=== PATIENT | female | born 1940 | race Caucasian/White ===

== ENCOUNTER 2017-05-27 05:18 | Observation (INO) | payer MEDICARE, OTHER ==
[2017-05-27] MEDS ORDERED: Nitroglycerin 2% Ointment 1 INCH/1 GM Packet ONE (05:58)
[2017-05-27] MEDS ORDERED: Nitroglycerin 0.4 MG TAB (25 Tab Bottle) ONE (06:09)
[2017-05-27 06:14] LABS: #Basophils 0.1 thou/uL (0.0-0.2); #Eosinphils 0.7 thou/uL (0.0-0.7); #Lymphocytes 1.5 thou/uL (1.20-3.40); #Monocytes 0.9 thou/uL (0.11-0.59); #Neutrophils 7.4 thou/uL (1.40-6.50); %Basophils 0.5 % (0.0-1.0); %Eosinophils 6.8 % (0.0-10.0); %Lymphocytes 14.1 % (21.0-51.0); %Monocytes 8.7 % (0.0-10.0); Hematocrit 42.9 % (36.0-47.0); Mean Platelet Volume 6.7 fL (7.4-10.4); Red Blood Cell (RBC) Count 4.32 mill/uL (4.20-5.40); White Blood Cell (WBC) Count 10.6 thou/uL (4.8-10.8)
[2017-05-27 06:37] LABS: ALT (SGPT) 15 U/L (8-55); AST (SGOT) 16 U/L (5-34); Alkaline Phosphatase 162 U/L (40-150); Anion Gap 14 mmol/L (10-20); BUN (Urea Nitrogen) 13 mg/dL (9.8-20.1); Bilirubin, Total 0.4 mg/dL (0.2-1.2); CK (CPK) 27 U/L (29-168); Calc. Creatinine Clearance 0 mL/min (70-130); Calcium 9.1 mg/dL (7.8-10.44); Carbon Dioxide 25 mmol/L (23-31); Chloride 105 mmol/L (98-107); Estimated GFR-MDRD 90; Globulin 3.2 g/dL (2.4-3.5); Lipase 11 U/L (8-78); Protein, Total 6.7 g/dL (6.0-8.3)
[2017-05-27 06:45] LABS: Troponin I Less than 0.010 ng/mL (< 0.028)
--- NOTE | 2017-05-27 07:53 | RAD ---
SINGLE VIEW OF THE CHEST: COMPARISON: 08/05/13. HISTORY: Chest pain. FINDINGS: Single view of the chest shows a normal sized cardiomediastinal silhouette. There is no evidence of consolidation, mass, or pleural effusion. The bones are unremarkable. IMPRESSION: No evidence of acute cardiopulmonary disease. POS: [facility]
[2017-05-27 09:24] VITALS: BMI 24.2
[2017-05-27 09:37] LABS: Troponin I Less than 0.010 ng/mL (< 0.028)
[2017-05-27] MEDS ORDERED: Acetaminophen 500 MG TAB PO SCH (12:15)
[2017-05-27 12:54] LABS: Troponin I 0.014 ng/mL (< 0.028)
[2017-05-27 16:07] VITALS: BP 159/72; TEMP 98.1
[2017-05-27] MEDS ORDERED: ADENOSINE 60 MG/20 ML VIAL ONE (16:50)
--- NOTE | 2017-05-27 17:41 | NM ---
MYOCARDIAL PERFUSION STUDY 05/27/17 HISTORY: Chest pain, asthma, COPD. RADIOPHARMACEUTICAL: 33 millicuries technetium 99m Sestamibi, IV at stress. MEDICATIONS: 12.7 mL (38.1 mg) Adenosine, IV. This study was performed as a stress only myocardial perfusion study. FINDINGS: There is generalized normal uptake of radiotracer seen throughout the left ventricular myocardium. N o focal defect is seen on the nonattenuated and attenuation corrected images. Gated images show norm al ventricular wall thickening with very mild hypokinesis involving the inferior left ventricular wa ll. The calculated left ventricular ejection fraction is 72%. IMPRESSION: 1. No significant defect is seen on stress acquisitions to suggest an area of ischemia. 2. Very mild hypokinesis involving the inferior left ventricular wall. 3. Normal LVEF at 72%. POS: [facility]
--- NOTE | 2017-05-27 18:05 | HP ---
DATE OF ADMISSION: 05/27/2017 PRIMARY CARE PHYSICIAN: Adrien Beyer M.D. CHIEF COMPLAINT: Chest pain. HISTORY OF PRESENT ILLNESS: This is a 76-year-old female who presents to [facility] complaining of chest and neck pain. The patient states she has noticed pain at th e top of her shoulders and base of her neck, especially after sleeping on her couch propped with pil lows due to difficulty with maneuvering into her bed after breaking her left arm several weeks ago. The patient has noticed some difficulty when moving her neck side to side or forward and sleeps wit h it bent forward most of the night. The patient denied any specific left jaw or left arm discomfor t. The patient denies any increased pain with mobilization or activity level. The patient apparent ly rides a stationary bike up to 2 hours at home according to her daughter at the bedside. The ezekiel ent did sustain a left wrist fracture several weeks prior with a cast in place. The patient has had some difficulty with mobilization. The patient does state she had a history of previous myocardial infarction 4-5 years prior to this evaluation undergoing cardiac stent placement. The patient also treated for hypertension with somewhat labile values according to family members. The patient does admit to taking aspirin 81 mg daily in addition to lovastatin. The patient denies any medication f or relief of her symptoms. The patient denies any recent travel history, trauma, injury, fever, chi lls, increased cough, congestion. In the emergency room, the patient underwent general evaluation i ncluding chest imaging showing no acute infiltrate. The patient was given nitroglycerin 0.4 mg subl ingually in addition to topical nitro paste and transferred to the observation unit. PAST MEDICAL HISTORY: 1. Coronary artery disease status post cardiac stent placement. 2. History of lumbar radiculopathy. 3. History of falls with sustainment of femoral neck fracture and dislocation. 4. Status post left wrist fracture status post fall. 5. Hypertension. 6. Hyperlipidemia. 7. Parkinson's disease. PAST SURGICAL HISTORY: 1. Status post hysterectomy. 2. Status post intramedullary nailing of a right hip fracture. 3. Status post cardiac stent placement. CURRENT MEDICATIONS: 1. Aspirin 81 mg 1 tab p.o. daily. 2. Carbidopa/levodopa 25/100 mg 1 tab p.o. t.i.d. 3. Lexapro 20 mg 1 tab p.o. daily. 4. Lisinopril 40 mg 1 tab p.o. daily. 5. Loratadine 10 mg 1 tab p.o. daily. 6. Lovastatin 10 mg p.o. at bedtime. 7. Metoprolol tartrate 100 mg p.o. b.i.d. 8. Amlodipine 2.5 mg p.o. daily. ALLERGIES: No known drug allergies. FAMILY HISTORY: Positive for hypertension. SOCIAL HISTORY: The patient resides in the [facility]. Ambulatory with the use of a rolling walker. History of recurrent falls. No current alcohol, tobacco or illicit drug use. REVIEW OF SYSTEMS: The following complete review of systems was negative, unless otherwise mentione d in the HPI or below: Constitutional: Weight loss or gain, ability to conduct usual activities. Skin: Rash, itching. Eyes: Double vision, pain. ENT/Mouth: Nose bleeding, neck stiffness, pain, tenderness. Cardiovascular: Palpitations, dyspnea on exertion, orthopnea. Respiratory: Shortness of breath, wheezing, cough, hemoptysis, fever or night sweats. Gastrointestinal: Poor appetite, abdominal pain, heartburn, nausea, vomiting, constipation, or diar odalis. Genitourinary: Urgency, frequency, dysuria, nocturia. Musculoskeletal: Pain, swelling. Neurologic/Psychiatric: Anxiety, depression. Allergy/Immunologic: Skin rash, bleeding tendency. Otherwise negative except as stated per HPI. PHYSICAL EXAMINATION: VITAL SIGNS: On admission, blood pressure 143/86, pulse 79, respiratory rate is 14, temperature 98 degrees Fahrenheit, O2 saturation 97% on room air. GENERAL APPEARANCE: This is a 76-year-old female, alert and oriented x3, pleasant, in no acute distress. HEENT: Pupils are equal, round and reactive to light and accommodation. Extraocular muscles are in tact. No scleral icterus. No conjunctival injection. Nares patent. OP is clear. Teeth in fair r epair. NECK: Supple, no cervical adenopathy, no thyromegaly, no carotid bruits, no JVD appreciated. Cervi shea spine with limited active range of motion and hyperextension. CHEST: Lungs are clear to auscultation bilaterally. CARDIOVASCULAR: S1, S2 without noted murmur. ABDOMEN: Rounded, soft, nontender, nondistended. Bowel sounds are positive in all 4 quadrants. Th ere is no hepatosplenomegaly, no abdominal bruits, no rebound or guarding appreciated. No palpable mass. EXTREMITIES: Warm and dry with fair turgor. No clubbing, cyanosis or asymmetric edema appreciated. Pulses palpable distally at the dorsalis pedis, posterior tibial, and popliteal arteries bilateral ly. Capillary refill less than 2 seconds. Left upper extremity with fiberglass cast in place. Eunice rovascularly intact of the left hand. NEUROLOGIC: Resting tremor noted. Cranial nerves II-XII are grossly intact. The patient not obser sidra ambulatory during this exam. PERTINENT LABORATORY AND X-RAY FINDINGS: Complete metabolic profile within normal limits. Troponin I negative x3. Lipase 11. CBC showed a white blood cell count of 10.6, hemoglobin 13.6, hematocri t 43, MCV 99, platelet count 391,000 with normal differential. Portable chest x-ray dated 7 showed no acute cardiopulmonary process. Cardiolite stress test dated 05/27/2017 showed no eviden ce of reversible or fixed ischemia with calculated ejection fraction of 72%. HOSPITAL COURSE: The patient was observed on the telemetry unit after initially presenting with nec k and questionable chest pain. The patient proceeded to Cardiolite stress testing after initial car diac enzymes were negative x3. Cardiolite stress testing showed no evidence of reversible or fixed ischemia with calculated ejection fraction of 72%. Telemetry monitoring showed sinus mechanism with out evidence of acute arrhythmia or dysrhythmia. The patient's presentation is consistent with musc uloskeletal origin symptoms likely due to patient's body habitus and repetitive posture contributing to neck pain. The patient was given education and reassurance regarding her condition. Overall, t he patient is clinically stable and ready for discharge on 05/27/2017. ASSESSMENT AND PLAN: 1. Chest pain, non-cardiac, suspected musculoskeletal in origin. Negative Cardiolite stress testin g as stated previously. No evidence of acute coronary syndrome. 2. Neck pain/myalgia. Symptomatic and supportive management. 3. Hypertension, labile. Resume home antihypertensive regimen and monitor clinically. The patient may need additional titration of her antihypertensive regimen on an ongoing basis after discharge. 4. Parkinson's disease. Continue carbidopa/levodopa. 5. Hyperlipidemia. Resume lovastatin 10 mg p.o. at bedtime. 6. Code status is full. Surrogate medical decision maker is the patient's daughter.
--- NOTE | 2017-05-28 02:08 | DIS ---
DATE OF ADMISSION: 05/27/2017 DATE OF DISCHARGE: 05/27/2017 DISCHARGE DIAGNOSES: 1. Chest pain, non-cardiac. 2. Neck pain/myalgia secondary to muscle strain. 3. Hypertension, labile. 4. Parkinson disease. 5. Hyperlipidemia. CONSULTATIONS: None. PERTINENT LABORATORY AND X-RAY FINDINGS: Complete metabolic profile within normal limits. CBC with in normal limits. Troponin I negative x3. Portable chest x-ray dated 05/27/2017 showed no acute ca rdiopulmonary process. Cardiolite stress testing dated 05/27/2017 showed no evidence of reversible or fixed ischemia with a calculated ejection fraction of 72%. HOSPITAL COURSE: The patient was observed on the telemetry unit after initially presenting with que stionable chest and neck pain. The patient proceeded to Cardiolite stress testing after initial car diac enzymes were negative x3. Cardiolite stress testing showed no evidence for reversible or fixed ischemia with a calculated ejection fraction of 72%. The patient's presentation was consistent wit h myalgias and muscle strain with education and reassurance given. Overall, the patient remained cl inically stable throughout the hospital course and ready for discharge on 05/27/2017. DISCHARGE MEDICATIONS: 1. Enteric-coated aspirin 81 mg 1 tab p.o. daily. 2. Carbidopa/levodopa 25/100 mg 1 tab p.o. t.i.d. 3. Lexapro 20 mg one tab p.o. daily. 4. Lisinopril 40 mg 1 tab p.o. daily. 5. Loratadine 10 mg 1 tab p.o. daily. 6. Lovastatin 10 mg p.o. at bedtime. 7. Metoprolol 100 mg p.o. b.i.d. 8. Amlodipine 2.5 mg 1 tab p.o. daily. FOLLOWUP: The patient will follow up with her primary care provider, Dr. Adrien Beyer, within 7 days of discharge. CONDITION ON DISCHARGE: Stable. ACTIVITY: Ad jesús. DIET: Heart healthy. CODE STATUS: Full. DISPOSITION: Home on 05/27/2017.
== END 2017-05-27 17:25 | disposition home or self-care (01) ==
LOC: ERS 05:18 → 2SW 07:27
PROVIDERS: ADMIT Family Medicine; ATTEND Family Medicine
DX: R07.89 Other chest pain (principal); M54.2 Cervicalgia; M79.1 Myalgia; S16.1XXA Strain of muscle, fascia and tendon at neck level, initial encounter; I10 Essential (primary) hypertension; G20 Parkinson's disease; E78.5 Hyperlipidemia, unspecified; I25.10 Atherosclerotic heart disease of native coronary artery without angina pectoris; M54.16 Radiculopathy, lumbar region; Z79.82 Long term (current) use of aspirin; Z79.899 Other long term (current) drug therapy; Z95.818 Presence of other cardiac implants and grafts; Z96.7 Presence of other bone and tendon implants; Z90.710 Acquired absence of both cervix and uterus; Z91.81 History of falling; Z87.81 Personal history of (healed) traumatic fracture; Z87.891 Personal history of nicotine dependence
CPT/HCPCS: 71010; 78452; 80053; 82550; 82553; 83690; 84484 ×2; 85025; 93005; 93017; 99285; A9500; 36415; J0153

== ENCOUNTER 2023-05-11 13:38 | Inpatient (IN) | payer MEDICARE, OTHER ==
[~2023-05-11 13:38] MED LIST: Iopamidol-370 76% 500 ML MDV (1 ML CHARGE) ONE
[2023-05-11 15:23] LABS: #Basophils 0.1 thou/uL (0.0-0.2); #Eosinphils 0.3 thou/uL (0.0-0.7); #Monocytes 0.8 thou/uL (0.11-0.59); %Basophils 0.6 % (0.0-1.0); %Eosinophils 3.9 % (0.0-10.0); %Lymphocytes 7.4 % (21.0-51.0); %Neutrophils 78.6 % (42.0-75.0); Hematocrit 41.4 % (36.0-47.0); Hemoglobin 13.7 g/dL (12.0-16.0); Mean Corpuscular HGB CONC 33.1 g/dL (32.0-36.0); Mean Corpuscular Hemoglobin 32.2 pg (27.0-31.0); Mean Corpuscular Volume 97.4 fl (78.0-98.0); Mean Platelet Volume 9.6 fL (7.4-10.4); Platelet Count 278 10x3/uL (130-400); RBC Distribution Width 13.7 % (11.5-14.5); Red Blood Cell (RBC) Count 4.25 mill/uL (4.20-5.40); White Blood Cell (WBC) Count 8.8 10x3/uL (4.8-10.8)
[2023-05-11 15:45] LABS: ALT (SGPT) Less than 7 U/L (8-55); AST (SGOT) 11 U/L (5-34); Albumin 3.9 g/dL (3.4-4.8); Alkaline Phosphatase 95 U/L (40-110); Anion Gap 16 mmol/L (10-20); BUN (Urea Nitrogen) 17 mg/dL (9.8-20.1); Bilirubin, Total 0.7 mg/dL (0.2-1.2); CK (CPK) 26 U/L (29-168); Calc. Creatinine Clearance 0 mL/min (70-130); Calcium 8.9 mg/dL (7.8-10.44); Carbon Dioxide 25 mmol/L (23-31); Chloride 105 mmol/L (98-107); Estimated GFR 86; Globulin 2.5 g/dL (2.4-3.5); Glucose 100 mg/dL (83-110); Potassium 3.8 mmol/L (3.5-5.1); Protein, Total 6.4 g/dL (5.8-8.1); Sodium 142 mmol/L (136-145)
[2023-05-11 15:49] LABS: Troponin I 0.012 ng/mL (< 0.028)
[2023-05-11 17:58] LABS: Bacteria/HPF None Seen HPF (None Seen); Bilirubin Negative (Negative); Blood, Urine Negative (Negative); CAUTI Indications for Culture Dysuria,urgency,freq; Clarity Clear (Clear); Glucose, Urine (Dipstick) Normal (Negative); Ketone, Urine 10 mg/dL (Negative); Leukocyte Negative Leu/uL (Negative); Nitrite Negative (Negative); Protein, Urine (Dipstick) Negative (Neg-Trace); RBC/HPF 0-3 HPF (0-3); Specific Gravity, Urine 1.027 (1.002-1.036); Squamous Epithelial 0-3 HPF (0-3); Urobilinogen Normal mg/dL (Less than 2); WBC/HPF 0-3 HPF (0-3); pH, Urine 7.5 (5.0-9.0)
[2023-05-11] MEDS ORDERED: Ondansetron ODT 4 MG TAB PO PRN (18:00)
[2023-05-11] MEDS ORDERED: Ondansetron PF 4 MG/2 ML Vial IVP PRN (18:00)
[2023-05-11] MEDS ORDERED: Acetaminophen 650 MG Suppository PR PRN (18:00)
[2023-05-11 18:26] LABS: Urine Culture Reflex No No
[2023-05-11 19:20] VITALS: BMI 21.4
[2023-05-11] MEDS ORDERED: Carbidopa/Levodopa 25-100 mg Tablet PO SCH (22:15)
[2023-05-11] MEDS ORDERED: Metoprolol Tartrate 50 MG TAB PO SCH (22:15)
[2023-05-11] MEDS ORDERED: hydrALAZINE 25 MG TAB PO SCH (22:15)
[2023-05-12] MEDS: Acetaminophen 325 MG TAB PO PRN (00:56)
[2023-05-12 06:33] LABS: #Basophils 0.1 thou/uL (0.0-0.2); #Eosinphils 0.5 thou/uL (0.0-0.7); #Monocytes 0.9 thou/uL (0.11-0.59); #Neutrophils 6.5 thou/uL (1.40-6.50); %Basophils 0.7 % (0.0-1.0); %Eosinophils 5.1 % (0.0-10.0); %Lymphocytes 11.3 % (21.0-51.0); %Monocytes 9.8 % (0.0-10.0); %Neutrophils 72.8 % (42.0-75.0); Hematocrit 38.4 % (36.0-47.0); Hemoglobin 12.7 g/dL (12.0-16.0); Mean Corpuscular HGB CONC 33.1 g/dL (32.0-36.0); Mean Corpuscular Hemoglobin 32.1 pg (27.0-31.0); Platelet Count 259 10x3/uL (130-400); RBC Distribution Width 13.5 % (11.5-14.5); Red Blood Cell (RBC) Count 3.96 mill/uL (4.20-5.40); White Blood Cell (WBC) Count 8.9 10x3/uL (4.8-10.8)
[2023-05-12 07:02] LABS: Anion Gap 11 mmol/L (10-20); BUN (Urea Nitrogen) 13 mg/dL (9.8-20.1); Calc. Creatinine Clearance 61 mL/min (70-130); Calcium 8.4 mg/dL (7.8-10.44); Carbon Dioxide 26 mmol/L (23-31); Chloride 104 mmol/L (98-107); Estimated GFR 87; Glucose 96 mg/dL (83-110); Sodium 138 mmol/L (136-145)
[2023-05-12 07:04] LABS: Phosphorus 2.3 mg/dL (2.3-4.7)
[2023-05-12] MEDS: Metoprolol Tartrate 50 MG TAB PO SCH ×2 (09:34→20:53)
[2023-05-12] MEDS: Lisinopril 10 MG TAB PO SCH (09:34)
[2023-05-12] MEDS: Amlodipine 5 MG TAB PO SCH (09:35)
[2023-05-12] MEDS: hydrALAZINE 25 MG TAB PO SCH ×2 (09:35→20:51)
[2023-05-12] MEDS: Escitalopram Oxalate 20 mg Tablet PO SCH (09:35)
[2023-05-12] MEDS: Aspirin 81 mg Enteric Coated Tablet PO SCH (09:35)
[2023-05-12] MEDS: Carbidopa/Levodopa 25-100 mg Tablet PO SCH ×3 (09:37→20:50)
[2023-05-12] MEDS: Simvastatin 5 MG TAB PO SCH (18:40)
[2023-05-12] MEDS ORDERED: Potassium Chloride 20 MEQ TAB PO SCH (20:00)
[2023-05-12] MEDS: Apixaban 5 MG TAB PO SCH (20:51)
[2023-05-13 06:46] LABS: #Eosinphils 0.7 thou/uL (0.0-0.7); #Monocytes 1.2 thou/uL (0.11-0.59); #Neutrophils 8.3 thou/uL (1.40-6.50); %Basophils 0.3 % (0.0-1.0); %Eosinophils 6.5 % (0.0-10.0); %Lymphocytes 9.1 % (21.0-51.0); %Monocytes 10.3 % (0.0-10.0); %Neutrophils 73.4 % (42.0-75.0); Hematocrit 40.1 % (36.0-47.0); Hemoglobin 13.2 g/dL (12.0-16.0); Mean Corpuscular HGB CONC 32.9 g/dL (32.0-36.0); Mean Corpuscular Hemoglobin 32.2 pg (27.0-31.0); Mean Corpuscular Volume 97.8 fl (78.0-98.0); Mean Platelet Volume 10.2 fL (7.4-10.4); Platelet Count 295 10x3/uL (130-400); RBC Distribution Width 13.8 % (11.5-14.5); White Blood Cell (WBC) Count 11.3 10x3/uL (4.8-10.8)
[2023-05-13 07:07] LABS: Anion Gap 10 mmol/L (10-20); BUN (Urea Nitrogen) 22 mg/dL (9.8-20.1); Calc. Creatinine Clearance 53 mL/min (70-130); Calcium 8.5 mg/dL (7.8-10.44); Carbon Dioxide 28 mmol/L (23-31); Chloride 105 mmol/L (98-107); Estimated GFR 76; Glucose 102 mg/dL (83-110); Potassium 3.6 mmol/L (3.5-5.1); Sodium 139 mmol/L (136-145)
[2023-05-13] MEDS: hydrALAZINE 25 MG TAB PO SCH ×2 (09:34→20:43)
[2023-05-13] MEDS: Aspirin 81 mg Enteric Coated Tablet PO SCH (09:34)
[2023-05-13] MEDS: Lisinopril 10 MG TAB PO SCH (09:34)
[2023-05-13] MEDS: Amlodipine 5 MG TAB PO SCH (09:35)
[2023-05-13] MEDS: Apixaban 5 MG TAB PO SCH ×2 (09:35→20:44)
[2023-05-13] MEDS: Metoprolol Tartrate 50 MG TAB PO SCH ×2 (09:35→20:44)
[2023-05-13] MEDS: Escitalopram Oxalate 20 mg Tablet PO SCH (09:35)
[2023-05-13] MEDS: Carbidopa/Levodopa 25-100 mg Tablet PO SCH ×3 (10:20→20:49)
[2023-05-13] MEDS ORDERED: HYDROcodone/Acetaminophen 5/325 mg Tablet PO PRN (15:56)
[2023-05-13] MEDS ORDERED: Fluticasone Propionate Nasal Spray 16 gm Bottle NASAL SCH (16:00)
[2023-05-13] MEDS ORDERED: guaiFENesin ER 600 MG TAB PO SCH (16:00)
[2023-05-13] MEDS ORDERED: tiZANidine HCl 4 MG TAB PO SCH (16:00)
[2023-05-13] MEDS: cefTRIAXone\\ROCEPHIN 1 GM in Sodium Chloride 0.9% 100 ML IVPB SCH (16:32)
[2023-05-13] MEDS: Azithromycin 500 MG in Sodium Chloride 0.9% 250 ML 250 ML IVPB SCH (17:05)
[2023-05-13] MEDS: Simvastatin 5 MG TAB PO SCH (17:55)
[2023-05-13] MEDS: guaiFENesin ER 600 MG TAB PO SCH (20:43)
[2023-05-13] MEDS: tiZANidine HCl 4 MG TAB PO SCH (20:44)
[2023-05-14 05:46] LABS: #Eosinphils 0.8 thou/uL (0.0-0.7); #Monocytes 1.1 thou/uL (0.11-0.59); #Neutrophils 7.6 thou/uL (1.40-6.50); %Basophils 0.2 % (0.0-1.0); %Eosinophils 7.1 % (0.0-10.0); %Monocytes 10.4 % (0.0-10.0); %Neutrophils 71.9 % (42.0-75.0); Hematocrit 37.2 % (36.0-47.0); Hemoglobin 12.2 g/dL (12.0-16.0); Mean Corpuscular HGB CONC 32.8 g/dL (32.0-36.0); Mean Corpuscular Volume 97.6 fl (78.0-98.0); Mean Platelet Volume 10.4 fL (7.4-10.4); Platelet Count 293 10x3/uL (130-400); Red Blood Cell (RBC) Count 3.81 mill/uL (4.20-5.40); White Blood Cell (WBC) Count 10.5 10x3/uL (4.8-10.8)
[2023-05-14 06:19] LABS: Anion Gap 11 mmol/L (10-20); BUN (Urea Nitrogen) 25 mg/dL (9.8-20.1); Calc. Creatinine Clearance 64 mL/min (70-130); Calcium 8.4 mg/dL (7.8-10.44); Carbon Dioxide 25 mmol/L (23-31); Chloride 106 mmol/L (98-107); Estimated GFR 88; Glucose 86 mg/dL (83-110); Potassium 3.5 mmol/L (3.5-5.1); Sodium 138 mmol/L (136-145)
[2023-05-14] MEDS: tiZANidine HCl 4 MG TAB PO SCH ×2 (08:28→20:35)
[2023-05-14] MEDS: Aspirin 81 mg Enteric Coated Tablet PO SCH (08:28)
[2023-05-14] MEDS: Apixaban 5 MG TAB PO SCH ×2 (08:28→20:35)
[2023-05-14] MEDS: guaiFENesin ER 600 MG TAB PO SCH ×2 (08:28→20:35)
[2023-05-14] MEDS: Amlodipine 5 MG TAB PO SCH (08:28)
[2023-05-14] MEDS: Metoprolol Tartrate 50 MG TAB PO SCH ×2 (08:29→20:36)
[2023-05-14] MEDS: Lisinopril 10 MG TAB PO SCH (08:29)
[2023-05-14] MEDS: Escitalopram Oxalate 20 mg Tablet PO SCH (08:29)
[2023-05-14] MEDS: Fluticasone Propionate Nasal Spray 16 gm Bottle NASAL SCH (08:29)
[2023-05-14] MEDS: hydrALAZINE 25 MG TAB PO SCH ×2 (08:29→20:36)
[2023-05-14] MEDS ORDERED: FLU VACC QS2023(65UP)/MF59C/PF 60 MCG/0.5 ML SYRINGE IM ONE (09:00)
[2023-05-14] MEDS: Carbidopa/Levodopa 25-100 mg Tablet PO SCH ×3 (09:45→20:34)
[2023-05-14] MEDS: Simvastatin 5 MG TAB PO SCH (16:24)
[2023-05-14] MEDS: Azithromycin 500 MG in Sodium Chloride 0.9% 250 ML 250 ML IVPB SCH (16:24)
[2023-05-14] MEDS: cefTRIAXone\\ROCEPHIN 1 GM in Sodium Chloride 0.9% 100 ML IVPB SCH (16:24)
[2023-05-15 05:17] LABS: #Basophils 0.1 thou/uL (0.0-0.2); #Eosinphils 0.8 thou/uL (0.0-0.7); #Monocytes 0.8 thou/uL (0.11-0.59); #Neutrophils 4.9 thou/uL (1.40-6.50); %Basophils 0.6 % (0.0-1.0); %Eosinophils 9.8 % (0.0-10.0); %Lymphocytes 18.9 % (21.0-51.0); %Monocytes 9.9 % (0.0-10.0); %Neutrophils 60.4 % (42.0-75.0); Hematocrit 35.8 % (36.0-47.0); Hemoglobin 11.5 g/dL (12.0-16.0); Mean Corpuscular HGB CONC 32.1 g/dL (32.0-36.0); Mean Corpuscular Hemoglobin 31.9 pg (27.0-31.0); Mean Corpuscular Volume 99.4 fl (78.0-98.0); Platelet Count 307 10x3/uL (130-400); White Blood Cell (WBC) Count 8.2 10x3/uL (4.8-10.8)
[2023-05-15 05:57] LABS: Anion Gap 12 mmol/L (10-20); BUN (Urea Nitrogen) 24 mg/dL (9.8-20.1); Calc. Creatinine Clearance 65 mL/min (70-130); Carbon Dioxide 22 mmol/L (23-31); Chloride 109 mmol/L (98-107); Estimated GFR 89; Glucose 86 mg/dL (83-110); Potassium 3.5 mmol/L (3.5-5.1); Sodium 139 mmol/L (136-145)
[2023-05-15] MEDS: Amlodipine 5 MG TAB PO SCH (08:54)
[2023-05-15] MEDS: Metoprolol Tartrate 50 MG TAB PO SCH ×2 (08:55→21:36)
[2023-05-15] MEDS: Aspirin 81 mg Enteric Coated Tablet PO SCH (08:55)
[2023-05-15] MEDS: Apixaban 5 MG TAB PO SCH ×2 (08:55→21:35)
[2023-05-15] MEDS: tiZANidine HCl 4 MG TAB PO SCH ×2 (08:56→21:35)
[2023-05-15] MEDS: Lisinopril 10 MG TAB PO SCH (08:56)
[2023-05-15] MEDS: Escitalopram Oxalate 20 mg Tablet PO SCH (08:56)
[2023-05-15] MEDS: guaiFENesin ER 600 MG TAB PO SCH ×2 (08:57→21:35)
[2023-05-15] MEDS: Carbidopa/Levodopa 25-100 mg Tablet PO SCH ×4 (08:57→21:35)
[2023-05-15] MEDS: hydrALAZINE 25 MG TAB PO SCH ×2 (08:57→21:37)
[2023-05-15] MEDS: Fluticasone Propionate Nasal Spray 16 gm Bottle NASAL SCH (08:58)
[2023-05-15] MEDS: cefTRIAXone\\ROCEPHIN 1 GM in Sodium Chloride 0.9% 100 ML IVPB SCH (17:53)
[2023-05-15] MEDS: Simvastatin 5 MG TAB PO SCH (18:44)
[2023-05-15] MEDS: Azithromycin 500 MG in Sodium Chloride 0.9% 250 ML 250 ML IVPB SCH (19:11)
[2023-05-16 07:35] LABS: #Basophils 0.1 thou/uL (0.0-0.2); #Eosinphils 0.8 thou/uL (0.0-0.7); #Monocytes 0.9 thou/uL (0.11-0.59); #Neutrophils 7.1 thou/uL (1.40-6.50); %Basophils 0.5 % (0.0-1.0); %Neutrophils 70.1 % (42.0-75.0); Hematocrit 37.3 % (36.0-47.0); Hemoglobin 12.5 g/dL (12.0-16.0); Mean Corpuscular HGB CONC 33.5 g/dL (32.0-36.0); Mean Corpuscular Hemoglobin 32.2 pg (27.0-31.0); Mean Corpuscular Volume 96.1 fl (78.0-98.0); Mean Platelet Volume 9.7 fL (7.4-10.4); Platelet Count 352 10x3/uL (130-400); RBC Distribution Width 13.7 % (11.5-14.5); Red Blood Cell (RBC) Count 3.88 mill/uL (4.20-5.40); White Blood Cell (WBC) Count 10.1 10x3/uL (4.8-10.8)
[2023-05-16 08:10] LABS: Anion Gap 13 mmol/L (10-20); BUN (Urea Nitrogen) 17 mg/dL (9.8-20.1); Calc. Creatinine Clearance 70 mL/min (70-130); Calcium 8.2 mg/dL (7.8-10.44); Carbon Dioxide 22 mmol/L (23-31); Chloride 109 mmol/L (98-107); Estimated GFR 90; Glucose 93 mg/dL (83-110); Potassium 3.7 mmol/L (3.5-5.1); Sodium 140 mmol/L (136-145)
[2023-05-16] MEDS: Lisinopril 10 MG TAB PO SCH (08:52)
[2023-05-16] MEDS: Aspirin 81 mg Enteric Coated Tablet PO SCH (08:53)
[2023-05-16] MEDS: guaiFENesin ER 600 MG TAB PO SCH ×2 (08:53→20:56)
[2023-05-16] MEDS: Escitalopram Oxalate 20 mg Tablet PO SCH (08:53)
[2023-05-16] MEDS: hydrALAZINE 25 MG TAB PO SCH ×2 (08:53→20:55)
[2023-05-16] MEDS: tiZANidine HCl 4 MG TAB PO SCH ×2 (08:53→20:55)
[2023-05-16] MEDS: Amlodipine 5 MG TAB PO SCH (08:53)
[2023-05-16] MEDS: Apixaban 5 MG TAB PO SCH ×2 (08:53→20:55)
[2023-05-16] MEDS: Metoprolol Tartrate 50 MG TAB PO SCH ×2 (08:53→20:55)
[2023-05-16] MEDS: Carbidopa/Levodopa 25-100 mg Tablet PO SCH ×3 (08:54→20:55)
[2023-05-16] MEDS: Fluticasone Propionate Nasal Spray 16 gm Bottle NASAL SCH (09:02)
[2023-05-16] MEDS ORDERED: Amlodipine 5 MG TAB PO SCH (10:00)
[2023-05-16] MEDS: cefTRIAXone\\ROCEPHIN 1 GM in Sodium Chloride 0.9% 100 ML IVPB SCH (15:25)
[2023-05-16] MEDS: Simvastatin 5 MG TAB PO SCH (17:47)
[2023-05-16] MEDS: Azithromycin 500 MG in Sodium Chloride 0.9% 250 ML 250 ML IVPB SCH (17:47)
[2023-05-16] MEDS: Acetaminophen 325 MG TAB PO PRN (20:54)
[2023-05-17 04:40] LABS: #Eosinphils 0.7 thou/uL (0.0-0.7); #Monocytes 0.8 thou/uL (0.11-0.59); #Neutrophils 5.5 thou/uL (1.40-6.50); %Basophils 0.4 % (0.0-1.0); %Lymphocytes 16.8 % (21.0-51.0); %Monocytes 9.2 % (0.0-10.0); %Neutrophils 65.1 % (42.0-75.0); Hematocrit 34.3 % (36.0-47.0); Hemoglobin 11.4 g/dL (12.0-16.0); Mean Corpuscular HGB CONC 33.2 g/dL (32.0-36.0); Mean Corpuscular Hemoglobin 32.6 pg (27.0-31.0); Mean Platelet Volume 9.9 fL (7.4-10.4); Platelet Count 402 10x3/uL (130-400); RBC Distribution Width 13.7 % (11.5-14.5); White Blood Cell (WBC) Count 8.5 10x3/uL (4.8-10.8)
[2023-05-17 05:09] LABS: Anion Gap 12 mmol/L (10-20); Calcium 8.2 mg/dL (7.8-10.44); Carbon Dioxide 26 mmol/L (23-31); Chloride 106 mmol/L (98-107); Glucose 93 mg/dL (83-110); Potassium 3.6 mmol/L (3.5-5.1); Sodium 140 mmol/L (136-145)
[2023-05-17 05:10] LABS: Calc. Creatinine Clearance 62 mL/min (70-130); Estimated GFR 88
[2023-05-17 05:11] LABS: BUN (Urea Nitrogen) 15 mg/dL (9.8-20.1)
[2023-05-17] MEDS: Carbidopa/Levodopa 25-100 mg Tablet PO SCH ×3 (09:45→20:38)
[2023-05-17] MEDS: tiZANidine HCl 4 MG TAB PO SCH ×2 (09:45→20:37)
[2023-05-17] MEDS: hydrALAZINE 25 MG TAB PO SCH ×2 (09:45→20:30)
[2023-05-17] MEDS: guaiFENesin ER 600 MG TAB PO SCH ×2 (09:45→20:37)
[2023-05-17] MEDS: Apixaban 5 MG TAB PO SCH ×2 (09:45→20:38)
[2023-05-17] MEDS: Amlodipine 5 MG TAB PO SCH (09:46)
[2023-05-17] MEDS: Escitalopram Oxalate 20 mg Tablet PO SCH (09:46)
[2023-05-17] MEDS: Aspirin 81 mg Enteric Coated Tablet PO SCH (09:46)
[2023-05-17] MEDS: Lisinopril 10 MG TAB PO SCH (09:46)
[2023-05-17] MEDS: Fluticasone Propionate Nasal Spray 16 gm Bottle NASAL SCH (09:46)
[2023-05-17] MEDS: Metoprolol Tartrate 50 MG TAB PO SCH ×2 (09:47→20:38)
[2023-05-17] MEDS: cefTRIAXone\\ROCEPHIN 1 GM in Sodium Chloride 0.9% 100 ML IVPB SCH (15:46)
[2023-05-17] MEDS: Azithromycin 500 MG in Sodium Chloride 0.9% 250 ML 250 ML IVPB SCH (18:34)
[2023-05-17] MEDS: Simvastatin 5 MG TAB PO SCH (18:35)
[2023-05-18 05:39] LABS: #Basophils 0.1 thou/uL (0.0-0.2); #Eosinphils 0.7 thou/uL (0.0-0.7); #Monocytes 0.5 thou/uL (0.11-0.59); #Neutrophils 5.2 thou/uL (1.40-6.50); %Basophils 1.2 % (0.0-1.0); %Eosinophils 8.5 % (0.0-10.0); %Lymphocytes 15.1 % (21.0-51.0); %Neutrophils 67.5 % (42.0-75.0); Hematocrit 37.2 % (36.0-47.0); Hemoglobin 12.2 g/dL (12.0-16.0); Mean Corpuscular HGB CONC 32.8 g/dL (32.0-36.0); Mean Corpuscular Hemoglobin 31.9 pg (27.0-31.0); Mean Corpuscular Volume 97.1 fl (78.0-98.0); Mean Platelet Volume 9.6 fL (7.4-10.4); Platelet Count 460 10x3/uL (130-400); RBC Distribution Width 13.5 % (11.5-14.5); Red Blood Cell (RBC) Count 3.83 mill/uL (4.20-5.40); White Blood Cell (WBC) Count 7.6 10x3/uL (4.8-10.8)
[2023-05-18 06:10] LABS: Anion Gap 9 mmol/L (10-20); BUN (Urea Nitrogen) 16 mg/dL (9.8-20.1); Calc. Creatinine Clearance 69 mL/min (70-130); Calcium 8.7 mg/dL (7.8-10.44); Carbon Dioxide 28 mmol/L (23-31); Chloride 105 mmol/L (98-107); Estimated GFR 90; Glucose 89 mg/dL (83-110); Potassium 3.1 mmol/L (3.5-5.1); Sodium 139 mmol/L (136-145)
[2023-05-18] MEDS: hydrALAZINE 25 MG TAB PO SCH ×2 (08:54→21:32)
[2023-05-18] MEDS: Aspirin 81 mg Enteric Coated Tablet PO SCH (08:54)
[2023-05-18] MEDS: Carbidopa/Levodopa 25-100 mg Tablet PO SCH ×3 (08:54→21:32)
[2023-05-18] MEDS: Lisinopril 10 MG TAB PO SCH (08:54)
[2023-05-18] MEDS: Metoprolol Tartrate 50 MG TAB PO SCH ×2 (08:54→21:31)
[2023-05-18] MEDS: Apixaban 5 MG TAB PO SCH ×2 (08:54→21:31)
[2023-05-18] MEDS: Amlodipine 5 MG TAB PO SCH (08:54)
[2023-05-18] MEDS: tiZANidine HCl 4 MG TAB PO SCH ×2 (08:54→21:32)
[2023-05-18] MEDS: guaiFENesin ER 600 MG TAB PO SCH ×2 (08:54→21:32)
[2023-05-18] MEDS: Fluticasone Propionate Nasal Spray 16 gm Bottle NASAL SCH (08:54)
[2023-05-18] MEDS: Escitalopram Oxalate 20 mg Tablet PO SCH (08:54)
[2023-05-18] MEDS ORDERED: Carvedilol 3.125 MG TAB PO SCH (10:05)
[2023-05-18] MEDS ORDERED: Potassium Chloride 20 MEQ TAB PO SCH (10:15)
[2023-05-18] MEDS ORDERED: Amlodipine 5 MG TAB PO SCH (10:15)
[2023-05-18] MEDS: Simvastatin 5 MG TAB PO SCH (17:17)
[2023-05-19 05:45] LABS: #Basophils 0.1 thou/uL (0.0-0.2); #Eosinphils 0.6 thou/uL (0.0-0.7); #Monocytes 0.6 thou/uL (0.11-0.59); #Neutrophils 4.9 thou/uL (1.40-6.50); %Basophils 1.1 % (0.0-1.0); %Eosinophils 7.6 % (0.0-10.0); %Lymphocytes 18.6 % (21.0-51.0); %Monocytes 7.5 % (0.0-10.0); %Neutrophils 64.7 % (42.0-75.0); Hematocrit 34.9 % (36.0-47.0); Hemoglobin 11.4 g/dL (12.0-16.0); Mean Corpuscular HGB CONC 32.7 g/dL (32.0-36.0); Mean Platelet Volume 9.4 fL (7.4-10.4); Platelet Count 482 10x3/uL (130-400); RBC Distribution Width 13.6 % (11.5-14.5); Red Blood Cell (RBC) Count 3.56 mill/uL (4.20-5.40); White Blood Cell (WBC) Count 7.6 10x3/uL (4.8-10.8)
[2023-05-19 06:08] LABS: Anion Gap 9 mmol/L (10-20); BUN (Urea Nitrogen) 15 mg/dL (9.8-20.1); Calc. Creatinine Clearance 64 mL/min (70-130); Calcium 8.6 mg/dL (7.8-10.44); Carbon Dioxide 26 mmol/L (23-31); Chloride 108 mmol/L (98-107); Estimated GFR 88; Glucose 88 mg/dL (83-110); Potassium 3.8 mmol/L (3.5-5.1); Sodium 139 mmol/L (136-145)
[2023-05-19 08:18] VITALS: BP 167/91; TEMP 97.7
[2023-05-19] MEDS: Fluticasone Propionate Nasal Spray 16 gm Bottle NASAL SCH (08:22)
[2023-05-19] MEDS: hydrALAZINE 25 MG TAB PO SCH (08:23)
[2023-05-19] MEDS: Lisinopril 10 MG TAB PO SCH (08:23)
[2023-05-19] MEDS: Apixaban 5 MG TAB PO SCH (08:23)
[2023-05-19] MEDS: tiZANidine HCl 4 MG TAB PO SCH (08:23)
[2023-05-19] MEDS: Escitalopram Oxalate 20 mg Tablet PO SCH (08:24)
[2023-05-19] MEDS: Aspirin 81 mg Enteric Coated Tablet PO SCH (08:24)
[2023-05-19] MEDS: Metoprolol Tartrate 50 MG TAB PO SCH (08:24)
[2023-05-19] MEDS: guaiFENesin ER 600 MG TAB PO SCH (08:24)
[2023-05-19] MEDS ORDERED: Amlodipine 10 MG TAB PO SCH (09:00)
[2023-05-19] MEDS: Carbidopa/Levodopa 25-100 mg Tablet PO SCH (10:08)
[2023-05-19] MEDS ORDERED: Apixaban 5 MG TAB PO SCH (21:00)
== END 2023-05-19 13:23 | DRG 175 ==
LOC: ERS 13:38 → T4-B 17:40 → OBSVTOIN 05-13 10:49
PROVIDERS: ADMIT Student in an Organized Health Care Education/Training Program; ATTEND Hospitalist
DX: I26.99 Other pulmonary embolism without acute cor pulmonale (principal); J18.9 Pneumonia, unspecified organism; J96.01 Acute respiratory failure with hypoxia; G20.A1 Parkinson's disease without dyskinesia, without mention of fluctuations; I10 Essential (primary) hypertension; R53.1 Weakness; I25.10 Atherosclerotic heart disease of native coronary artery without angina pectoris; D72.829 Elevated white blood cell count, unspecified; Z79.82 Long term (current) use of aspirin; Z79.899 Other long term (current) drug therapy; Z90.710 Acquired absence of both cervix and uterus; I25.2 Old myocardial infarction; Z95.5 Presence of coronary angioplasty implant and graft; Z98.890 Other specified postprocedural states
CPT/HCPCS: 36415; 70450; 71045; 71275; 80048; 80053; 81001; 82550; 83735; 84100; 84443; 84484; 85025; 87086; 90471; 90694; 93005; 94760; 96372; G0008; G0378; J0456; J0696; J1650; J3490; J7050; Q9967

== ENCOUNTER 2023-08-10 14:43 | Outpatient (CLI) | payer MEDICARE, OTHER | END 2023-08-10 14:44 | disposition home or self-care (01) | LOC: BICRAD 14:43 | PROVIDERS: ATTEND Student in an Organized Health Care Education/Training Program | DX: M54.2 Cervicalgia (principal); G24.9 Dystonia, unspecified; M47.812 Spondylosis without myelopathy or radiculopathy, cervical region; M40.202 Unspecified kyphosis, cervical region; M47.813 Spondylosis without myelopathy or radiculopathy, cervicothoracic region | CPT/HCPCS: 72040 ==

== ENCOUNTER 2023-09-16 12:43 | Outpatient (CLI) | payer MEDICARE, OTHER | END 2023-09-16 12:44 | disposition home or self-care (01) | LOC: ULT 12:43 | PROVIDERS: ATTEND Family Medicine | DX: I26.99 Other pulmonary embolism without acute cor pulmonale (principal) | CPT/HCPCS: 93970 ==

== ENCOUNTER 2023-11-21 15:05 | Inpatient (IN) | payer MEDICARE, OTHER ==
[2023-11-21] MEDS ORDERED: Vancomycin 1 GM/200 ML (FROZEN) BAG ONE (15:29)
[2023-11-21] MEDS ORDERED: Sodium Chloride 0.9% 100 ML ONE (15:29)
[2023-11-21] MEDS ORDERED: Cefepime 2 GM VIAL ONE (15:29)
[2023-11-21 15:37] LABS: #Basophils 0.03 10x3/uL (0.0-0.2); #Eosinphils Less than 0.03 10x3/uL (0.0-0.7); %Basophils 0.2 % (0.0-1.0); %Eosinophils 0.1 % (0.0-10.0); %Lymphocytes 1.4 % (21.0-51.0); %Monocytes 3.6 % (0.0-10.0); %Neutrophils 94.1 % (42.0-75.0); Hematocrit 40.2 % (36.0-47.0); Hemoglobin 13.8 g/dL (12.0-16.0); Mean Corpuscular HGB CONC 34.3 g/dL (32.0-36.0); Mean Corpuscular Hemoglobin 31.9 pg (27.0-31.0); Mean Corpuscular Volume 92.8 fL (78.0-98.0); Platelet Count 324 10x3/uL (130-400); RBC Distribution Width 14.3 % (11.5-14.5); Red Blood Cell (RBC) Count 4.33 mill/uL (4.20-5.40)
[2023-11-21 16:01] LABS: Acetaminophen Less than 10 mcg/mL (10.0-30.0); Alcohol Less than 10.0 mg/dL (Less than 10); Lipase 7 U/L (8-78); Magnesium 1.8 mg/dL (1.6-2.6); Salicylate Less than 8.0 mg/dL (15.0-30.0)
[2023-11-21 16:05] LABS: Troponin I 0.017 ng/mL (< 0.028)
[2023-11-21 16:16] LABS: Influenza A by NAA Not Detected (NotDetected); Influenza B by NAA Not Detected (NotDetected); SARS-CoV-2 NAA Rapid Test Not Detected (NotDetected)
[2023-11-21 16:39] LABS: Globulin 3.2 g/dL (2.4-3.5)
[2023-11-21 16:44] LABS: ALT (SGPT) Less than 5 U/L (8-55); AST (SGOT) 12 U/L (5-34); Albumin 3.4 g/dL (3.4-4.8); Alkaline Phosphatase 97 U/L (40-110); Anion Gap 15 mmol/L (10-20); BUN (Urea Nitrogen) 20 mg/dL (9.8-20.1); Bilirubin, Total 0.7 mg/dL (0.2-1.2); Calc. Creatinine Clearance 0 mL/min (70-130); Calcium 9.2 mg/dL (7.8-10.44); Carbon Dioxide 24 mmol/L (23-31); Chloride 104 mmol/L (98-107); Estimated GFR 79; Glucose 143 mg/dL (83-110); Potassium 3.4 mmol/L (3.5-5.1); Protein, Total 6.6 g/dL (5.8-8.1); Sodium 140 mmol/L (136-145)
[2023-11-21 16:59] LABS: Bacteria/HPF None Seen HPF (None Seen); Bilirubin Negative (Negative); Blood, Urine 1+ (Negative); CAUTI Indications for Culture Alt mental st,lethar; Clarity Turbid (Clear); Glucose, Urine (Dipstick) Normal (Negative); Ketone, Urine 20 mg/dL (Negative); Leukocyte 500 Leu/uL (Negative); Nitrite Negative (Negative); Protein, Urine (Dipstick) 30 mg/dL (Neg-Trace); Specific Gravity, Urine 1.023 (1.002-1.036); Urobilinogen Normal mg/dL (Less than 2); WBC/HPF Greater than 50 HPF (0-3)
[2023-11-21 17:00] LABS: Urine Culture Reflex Yes Yes
[2023-11-21 17:07] LABS: Amphetamine Not Detected (NotDetected); Barbiturates Screen Not Detected (NotDetected); Benzodiazepine Screen Not Detected (NotDetected); Cocaine Metabolite Screen Not Detected (NotDetected); Methadone Not Detected (NotDetected); Methamphetamine Not Detected (NotDetected); Opiate Screen Not Detected (NotDetected); Oxycodone Screen Not Detected (NotDetected); Phencyclidine (PCP) Not Detected (NotDetected); THC/Cannabinoid Screen Not Detected (NotDetected); Tricyclic Screen Not Detected (NotDetected)
[2023-11-21] MEDS ORDERED: Ondansetron ODT 4 MG TAB PO PRN (19:53)
[2023-11-21] MEDS ORDERED: Ondansetron PF 4 MG/2 ML Vial IVP PRN (19:53)
[2023-11-21] MEDS: Potassium Chloride 20 MEQ TAB PO SCH (21:02)
[2023-11-21 21:26] VITALS: BMI 20.9
[2023-11-21] MEDS: Carbidopa/Levodopa 25-100 mg Tablet PO SCH (22:10)
[2023-11-21] MEDS: Sodium Chloride 0.9% 1,000 ML IV SCH (22:12)
[2023-11-22] MEDS: cefTRIAXone\\ROCEPHIN 1 GM in Sodium Chloride 0.9% 100 ML IVPB SCH (04:42)
[2023-11-22 06:07] LABS: #Basophils 0.03 10x3/uL (0.0-0.2); %Basophils 0.2 % (0.0-1.0); %Lymphocytes 1.8 % (21.0-51.0); %Monocytes 4.9 % (0.0-10.0); %Neutrophils 89.4 % (42.0-75.0); Hematocrit 37.6 % (36.0-47.0); Hemoglobin 12.6 g/dL (12.0-16.0); Mean Corpuscular HGB CONC 33.5 g/dL (32.0-36.0); Mean Corpuscular Hemoglobin 31.7 pg (27.0-31.0); Mean Corpuscular Volume 94.7 fL (78.0-98.0); Mean Platelet Volume 9.8 fL (7.4-10.4); Platelet Count 265 10x3/uL (130-400); RBC Distribution Width 14.7 % (11.5-14.5); Red Blood Cell (RBC) Count 3.97 mill/uL (4.20-5.40)
[2023-11-22 06:31] LABS: Anion Gap 12 mmol/L (10-20); BUN (Urea Nitrogen) 24 mg/dL (9.8-20.1); Calc. Creatinine Clearance 49 mL/min (70-130); Calcium 8.4 mg/dL (7.8-10.44); Carbon Dioxide 23 mmol/L (23-31); Chloride 108 mmol/L (98-107); Estimated GFR 75; Glucose 101 mg/dL (83-110); Potassium 4.1 mmol/L (3.5-5.1); Sodium 139 mmol/L (136-145)
[2023-11-22] MEDS: Escitalopram Oxalate 20 mg Tablet PO SCH (10:23)
[2023-11-22] MEDS: hydrALAZINE 25 MG TAB PO SCH (10:23)
[2023-11-22] MEDS: Aspirin 81 mg Enteric Coated Tablet PO SCH (10:23)
[2023-11-22] MEDS: Lisinopril 20 MG TAB PO SCH (10:23)
[2023-11-22] MEDS: Metoprolol Tartrate 100 MG TAB PO SCH (10:24)
[2023-11-22] MEDS: Enoxaparin 40 MG (0.4 mL) SYRINGE SC SCH (10:24)
[2023-11-22] MEDS: Cefepime 1 GM in Sodium Chloride 0.9% 100 ML IVPB SCH (16:05)
[2023-11-22] MEDS: Vancomycin 1 GM in Premix 1 BAG IVPB SCH (16:05)
[2023-11-22] MEDS: Simvastatin 5 MG TAB PO SCH (16:08)
[2023-11-22] MEDS: Acetaminophen 325 MG TAB PO PRN (20:24)
[2023-11-23 08:37] LABS: Globulin 2.7 g/dL (2.4-3.5)
[2023-11-23 08:41] LABS: ALT (SGPT) 12 U/L (8-55); AST (SGOT) 34 U/L (5-34); Albumin 2.3 g/dL (3.4-4.8); Alkaline Phosphatase 85 U/L (40-110); Anion Gap 11 mmol/L (10-20); BUN (Urea Nitrogen) 22 mg/dL (9.8-20.1); Bilirubin, Total 0.3 mg/dL (0.2-1.2); Calc. Creatinine Clearance 60 mL/min (70-130); Calcium 8.3 mg/dL (7.8-10.44); Carbon Dioxide 21 mmol/L (23-31); Chloride 109 mmol/L (98-107); Estimated GFR 88; Glucose 82 mg/dL (83-110); Potassium 3.3 mmol/L (3.5-5.1); Sodium 138 mmol/L (136-145)
[2023-11-23 08:44] LABS: #Basophils Less than 0.03 10x3/uL (0.0-0.2); %Basophils 0.2 % (0.0-1.0); %Eosinophils 9.7 % (0.0-10.0); %Lymphocytes 7.1 % (21.0-51.0); %Monocytes 9.7 % (0.0-10.0); %Neutrophils 72.9 % (42.0-75.0); Hematocrit 36.4 % (36.0-47.0); Mean Corpuscular Hemoglobin 31.1 pg (27.0-31.0); Mean Corpuscular Volume 94.3 fL (78.0-98.0); Platelet Count 256 10x3/uL (130-400); RBC Distribution Width 15.2 % (11.5-14.5); Red Blood Cell (RBC) Count 3.86 mill/uL (4.20-5.40)
[2023-11-23] MEDS ORDERED: Electrolyte Replacement Protocol 1 EACH FS SCH (09:15)
[2023-11-23] MEDS ORDERED: Electrolyte Replacement Protocol FS PRN (09:30)
[2023-11-23] MEDS: hydrALAZINE 20 MG/ML VIAL SLOW IVP SCH (09:46)
[2023-11-23] MEDS: Potassium Chloride 20 MEQ TAB PO SCH (09:47)
[2023-11-23] MEDS: hydrALAZINE 25 MG TAB PO SCH ×2 (09:49→15:34)
[2023-11-23 15:24] LABS: Potassium 3.6 mmol/L (3.5-5.1)
[2023-11-23] MEDS: Vancomycin (BATCH) 1.25 GM in Premix 1 BAG IVPB SCH (15:42)
[2023-11-24 05:16] LABS: #Basophils Less than 0.03 10x3/uL (0.0-0.2); %Basophils 0.2 % (0.0-1.0); %Eosinophils 11.6 % (0.0-10.0); %Lymphocytes 10.3 % (21.0-51.0); %Monocytes 8.9 % (0.0-10.0); %Neutrophils 68.7 % (42.0-75.0); Hematocrit 38.1 % (36.0-47.0); Hemoglobin 12.7 g/dL (12.0-16.0); Mean Corpuscular HGB CONC 33.3 g/dL (32.0-36.0); Mean Corpuscular Hemoglobin 31.4 pg (27.0-31.0); Mean Corpuscular Volume 94.3 fL (78.0-98.0); Mean Platelet Volume 10.6 fL (7.4-10.4); Platelet Count 318 10x3/uL (130-400); RBC Distribution Width 14.8 % (11.5-14.5); Red Blood Cell (RBC) Count 4.04 mill/uL (4.20-5.40)
[2023-11-24 05:25] LABS: Globulin 3.1 g/dL (2.4-3.5)
[2023-11-24 05:26] LABS: Phosphorus 2.4 mg/dL (2.3-4.7)
[2023-11-24 05:30] LABS: ALT (SGPT) 5 U/L (8-55); AST (SGOT) 19 U/L (5-34); Albumin 2.5 g/dL (3.4-4.8); Alkaline Phosphatase 95 U/L (40-110); Anion Gap 14 mmol/L (10-20); BUN (Urea Nitrogen) 20 mg/dL (9.8-20.1); Bilirubin, Total 0.4 mg/dL (0.2-1.2); Calc. Creatinine Clearance 62 mL/min (70-130); Calcium 8.6 mg/dL (7.8-10.44); Carbon Dioxide 20 mmol/L (23-31); Chloride 108 mmol/L (98-107); Estimated GFR 88; Glucose 98 mg/dL (83-110); Magnesium 1.8 mg/dL (1.6-2.6); Potassium 3.4 mmol/L (3.5-5.1); Protein, Total 5.6 g/dL (5.8-8.1); Sodium 139 mmol/L (136-145)
[2023-11-24] MEDS: hydrALAZINE 20 MG/ML VIAL SLOW IVP PRN (06:22)
[2023-11-24] MEDS: Fluticasone Propionate Nasal Spray 16 gm Bottle NASAL PRN (06:22)
[2023-11-24] MEDS: Magnesium 2 GM/50 ML(in water) 2 GM in Premix 1 BAG IVPB SCH (09:20)
[2023-11-24] MEDS: Potassium Chloride 20 MEQ TAB PO SCH (09:22)
[2023-11-24] MEDS: Ibuprofen 200 MG TAB PO PRN (13:34)
[2023-11-25 05:07] LABS: #Basophils 0.04 10x3/uL (0.0-0.2); %Basophils 0.5 % (0.0-1.0); %Eosinophils 13.5 % (0.0-10.0); %Lymphocytes 11.7 % (21.0-51.0); %Monocytes 8.8 % (0.0-10.0); %Neutrophils 65.1 % (42.0-75.0); Mean Corpuscular HGB CONC 33.3 g/dL (32.0-36.0); Mean Corpuscular Hemoglobin 30.8 pg (27.0-31.0); Mean Corpuscular Volume 92.5 fL (78.0-98.0); Mean Platelet Volume 10.5 fL (7.4-10.4); Platelet Count 325 10x3/uL (130-400); Red Blood Cell (RBC) Count 3.89 mill/uL (4.20-5.40)
[2023-11-25 05:18] LABS: Globulin 2.4 g/dL (2.4-3.5)
[2023-11-25 05:22] LABS: ALT (SGPT) Less than 5 U/L (8-55); AST (SGOT) 12 U/L (5-34); Albumin 2.4 g/dL (3.4-4.8); Alkaline Phosphatase 96 U/L (40-110); Anion Gap 11 mmol/L (10-20); BUN (Urea Nitrogen) 25 mg/dL (9.8-20.1); Bilirubin, Total 0.3 mg/dL (0.2-1.2); Calc. Creatinine Clearance 60 mL/min (70-130); Calcium 8.4 mg/dL (7.8-10.44); Carbon Dioxide 22 mmol/L (23-31); Chloride 112 mmol/L (98-107); Estimated GFR 88; Glucose 96 mg/dL (83-110); Potassium 4.4 mmol/L (3.5-5.1); Protein, Total 4.8 g/dL (5.8-8.1); Sodium 141 mmol/L (136-145)
[2023-11-25 05:45] LABS: Vancomycin, Random 19.7 ug/mL (See Comment)
[2023-11-25] MEDS: Fluticasone Propionate Nasal Spray 16 gm Bottle NASAL SCH (14:46)
[2023-11-26] MEDS: Fluticasone Propionate Nasal Spray 16 gm Bottle NASAL SCH (09:08)
[2023-11-26] MEDS: Senokot S 8.6-50 MG TAB PO SCH (10:31)
[2023-11-26] MEDS: Loratadine 10 MG TAB PO PRN (15:01)
[2023-11-27] MEDS: Polyethylene Glycol 3350 17 GM Packet PO SCH (08:13)
[2023-11-27] MEDS: Milk Of Magnesia 30 ML UDCUP PO PRN (08:13)
[2023-11-28] MEDS: hydrALAZINE 25 MG TAB PO SCH (16:34)
[2023-11-29 11:55] VITALS: TEMP 97.1
[2023-11-29 15:56] VITALS: BP 176/84
== END 2023-11-29 17:13 | DRG 871 ==
LOC: ERS 15:05 → 2NO 18:52 → OBSVTOIN 11-22 11:56
PROVIDERS: ADMIT Physician Assistant; ATTEND Internal Medicine
DX: A41.89 Other specified sepsis (principal); G93.41 Metabolic encephalopathy; N39.0 Urinary tract infection, site not specified; G20.A1 Parkinson's disease without dyskinesia, without mention of fluctuations; E87.6 Hypokalemia; R53.81 Other malaise; J30.2 Other seasonal allergic rhinitis; R65.20 Severe sepsis without septic shock; K59.00 Constipation, unspecified; I10 Essential (primary) hypertension; I25.10 Atherosclerotic heart disease of native coronary artery without angina pectoris; Z95.5 Presence of coronary angioplasty implant and graft; I25.2 Old myocardial infarction; Z79.01 Long term (current) use of anticoagulants; Z79.899 Other long term (current) drug therapy; Z79.82 Long term (current) use of aspirin; Z90.710 Acquired absence of both cervix and uterus; Z98.890 Other specified postprocedural states
CPT/HCPCS: 36415; 51701; 70450; 71045; 74177; 80048; 80053; 80202; 80306; 80307; 81001; 83605; 83690; 83735; 83880; 84100; 84443; 84484; 85025; 87040; 87077; 87086; 87149; 87186; 93005; 96365; 96366; 96375; J0360; J0692; J0696; J1650; J3370; J3370-JW; J3475; J3490; J7050; Q9967